=== PATIENT | female | born 1955 | race Two or more races ===

== ENCOUNTER 2017-06-27 01:09 | Emergency (ER) | payer OTHER ==
[~2017-06-27] VITALS: Ht 165.1 cm; Wt 68.0 kg
[~2017-06-27 01:09] MED LIST: PROP10TA10 PO
--- NOTE | 2017-06-27 01:15 | NUR ---
TO BED 3 A 61 YO FEMALE PT BIBA#88 FROM HOME, PER EMS, PT FAMILY THOUGHT SHE TOOK TO MANY PILLS AND WANTED HER TO BE CHECKED OUT PT DENIES ANY COMPLAINTS AT THIS TIME. PATIENT IS ALERT AND RESPONSIVE, NAD NOTED. VSS. BREATHING EVEN AND UNLABORED. NONDIAPHORETIC. GOWNED. PLACED ON CARDIAC AND VS MONITORING. SAFETY MEASURES IN PLACE.
[2017-06-27] MEDS ORDERED: IV NS 0.9% 500 ML BAG IV ONE (01:30)
--- NOTE | 2017-06-27 01:35 | NUR ---
started a saline lock on the rac g20, blood drawn and sent to lab.
[2017-06-27 01:45] LABS: EOSINOPHILS % (AUTO) 0.1 % (0.0-6.0); HEMATOCRIT 37 % (33-45); HEMOGLOBIN 12.1 g/dL (11.5-14.8); LYMPHOCYTES # (AUTO) 0.6 /CMM (0.8-4.8); LYMPHOCYTES % (AUTO) 5.8 % (20.0-44.0); MEAN CORPUSCULAR HEMOGLOBIN 27 PG (26.0-33.0); MEAN CORPUSCULAR HGB CONC 33 g/dl (31.0-36.0); MEAN CORPUSCULAR VOLUME 82 fL (82-100); MONOCYTES # (AUTO) 0.7 /CMM (0.1-1.30); MONOCYTES % (AUTO) 6.7 % (2.0-12.0); NEUTROPHILS # (AUTO) 8.9 /CMM (1.8-8.9); NEUTROPHILS % (AUTO) 87.4 % (43.0-81.0); PLATELET COUNT (AUTO) 100 /CMM (150-450); RDW COEFFICIENT OF VARIATION 15.4 (11.5-15.0); RED BLOOD CELL COUNT(AUTO) 4.47 MIL/uL (4.0-5.2); WHITE BLOOD COUNT (AUTO) 10.2 K/uL (4.3-11.0)
[2017-06-27 01:46] LABS: APPEARANCE,URINE CLEAR (CLEAR); BILIRUBIN,URINE NEGATIVE (NEGATIVE); BLOOD, URINE NEGATIVE Ery/uL (NEGATIVE); COLOR,URINE YELLOW (YELLOW); KETONES,URINE NEGATIVE (NEGATIVE); LEUKOCYTE ESTERASE ,URINE NEGATIVE (NEGATIVE); NITRITE, URINE NEGATIVE (NEGATIVE); PH,URINE 7.5 (5.0-8.0); PROTEIN,URINE NEGATIVE (NEGATIVE); UGLUCOSE NEGATIVE (NEGATIVE)
--- NOTE | 2017-06-27 01:49 | NUR ---
AND DAUGHTER AT BEDSIDE.
[2017-06-27 01:50] LABS: BACTERIA,URINE None seen /HPF (None Seen); RBC,URINE NONE SEEN /HPF (0-2); SQUAMOUS EPITHELIAL CELL,UR Few /HPF (None Seen); WBC,URINE 0-2 /HPF (0-3)
[2017-06-27 01:56] LABS: CALCIUM, SERUM 8.9 mg/dL (8.5-10.1); CARBON DIOXIDE 26 mmol/L (21-32); CHLORIDE 104 mmol/L (98-107); CREATININE 0.7 mg/dL (0.6-1.3); GLUCOSE 149 mg/dL (74-106); POTASSIUM 3.6 mmol/L (3.5-5.1); SODIUM SERUM 138 mmol/L (136-145); UREA NITROGEN, BLOOD 8 mg/dL (7-18)
[2017-06-27 02:07] LABS: ALANINE AMINOTRANSFERASE 37 U/L (12-78); ALBUMIN 3.4 g/dL (3.4-5.0); ALCOHOL, BLOOD < 3 mg/dL (0-0); ALKALINE PHOSPHATASE 128 U/L (46-116); ASPARTATE AMINOTRANSFERASE 45 U/L (15-37); BILIRUBIN,DIRECT 0.1 mg/dL (0.0-0.2); BILIRUBIN,TOTAL 0.3 mg/dL (0.2-1.0); TOTAL PROTEIN, SERUM 7.5 g/dL (6.4-8.2)
[2017-06-27 02:08] LABS: ACETAMINOPHEN 0 ug/ml (10-30)
--- NOTE | 2017-06-27 02:28 | NUR ---
patient to ct.
--- NOTE | 2017-06-27 03:22 | NUR ---
IV removed. Catheter intact and site benign. Pressure and 4x4 applied to site. No bleeding noted.
--- NOTE | 2017-06-27 03:23 | NUR ---
accompanied by family. vss.
--- NOTE | 2017-06-27 03:23 | NUR ---
Patient discharged to home in stable condition. Written and verbal after care instructions given. Patient verbalizes understanding of instruction. Patient is ambulatory with steady gait, no further complaints.
[2017-06-27 03:26] VITALS: BP 120/74
== END 2017-06-27 03:27 | disposition home or self-care (01) ==
LOC: ER 01:11
DX: R41.82 Altered mental status, unspecified (principal); T42.6X1A Poisoning by other antiepileptic and sedative-hypnotic drugs, accidental (unintentional), initial encounter; Y92.89 Other specified places as the place of occurrence of the external cause; I10 Essential (primary) hypertension
CPT/HCPCS: 36415; 70450-TC; 80048-TC; 80076-TC; 80305; 81000-TC; 85025-TC; A4606; G0480; J7040; Z7610

== ENCOUNTER 2018-10-05 01:15 | Inpatient (IN) | payer OTHER ==
[~2018-10-05] VITALS: Ht 149.9 cm; Wt 73.9 kg
[2018-10-05] VITALS (24 sets, daily range): BP systolic 55–129; BP diastolic 30–98
--- NOTE | 2018-10-05 01:50 | NUR ---
RN ADMITTING NOTE RECEIVED PT VIA [facility] FROM [facility] ACCOMPANIED BY AND DAUGHTER. A/OX4, BREATHING EVEN AND UNLABORED ON 2L O2 NC. COMPLAINS OF EXCESSIVE SNEEZING AND SUBSEQUENT HEADACHE. IV ACCESS ON THE R AC 18G AND L AC 18G PATENT AND FLUSHING. SKIN INTACT. BED IN LOWEST LOCKED POSITION, CALL LIGHT WITHIN REACH AT ALL TIMES, WILL CONTINUE TO MONITOR.
[2018-10-05] MEDS ORDERED: ACET-73 PO (02:13)
[2018-10-05] MEDS ORDERED: DULO30CA2 PO (02:21)
[2018-10-05] MEDS ORDERED: CHOL200026 PO (02:21)
[2018-10-05] MEDS ORDERED: AMLO2.5T2 PO (02:21)
[2018-10-05] MEDS ORDERED: CYCL10TA9 PO (02:21)
[2018-10-05] MEDS ORDERED: GABA600T12 PO (02:35)
[2018-10-05] MEDS ORDERED: METF-440 PO (02:35)
[2018-10-05] MEDS ORDERED: OMEP20CA10 PO (02:35)
[2018-10-05] MEDS ORDERED: RANI150C4 PO (02:35)
[2018-10-05] MEDS: IV D5 LR 1,000 ML IV PRN ×3 (03:20→21:40)
[2018-10-05] MEDS ORDERED: ACETAMINOPHEN 650 MG/SUPP.RECT RC PRN (03:30)
[2018-10-05] MEDS ORDERED: HYDROMORPHONE INJ 2 MG/ML DISP.SYRIN IV PRN (03:30)
[2018-10-05] MEDS ORDERED: DEXTROSE 50%-WATER 50 ML DISP.SYRIN IV PRN (03:30)
[2018-10-05] MEDS ORDERED: LORAZEPAM INJ 2 MG/ML VIAL IV PRN (03:30)
[2018-10-05] MEDS: BLOOD SUGAR DIAGNOSTIC 1 EACH STRIP IN SCH ×3 (05:45→17:01)
[2018-10-05] MEDS: INSULIN REGULAR, HUMAN 100 UNIT/ML 3 ML VIAL SQ PRN ×3 (05:46→17:45)
--- NOTE | 2018-10-05 06:48 | NUR ---
PROOFER PREPRESS CLOSING NOTES PT REMAINS IN BED, AWAKE, A/OX4, BREATHING EVEN AND UNLABORED ON 2L O2 NC. CONTINUES TO COMPLAINS OF EXCESSIVE SNEEZING AND SUBSEQUENT HEADACHE, ALCIDES PAGED, NO RESPONSE. TELE MONITOR IN PLACE, SR LOW 100S. IV ACCESS ON THE R AC 18G AND L AC 18G PATENT AND FLUSHING. SKIN INTACT. MRSA SWAB DONE. BED IN LOWEST LOCKED POSITION, CALL LIGHT WITHIN REACH AT ALL TIMES, WILL ENDORSE TO DAY NURSE FOR PRIMITIVO
[2018-10-05 08:23] LABS: BASOPHILS % (AUTO) 0.3 % (0.0-2.0); EOSINOPHILS % (AUTO) 2.1 % (0.0-6.0); HEMATOCRIT 26 % (33-45); HEMOGLOBIN 8.6 g/dL (11.5-14.8); LYMPHOCYTES # (AUTO) 1.1 /CMM (0.8-4.8); LYMPHOCYTES % (AUTO) 10.3 % (20.0-44.0); MEAN CORPUSCULAR HGB CONC 33 g/dl (31.0-36.0); MEAN CORPUSCULAR VOLUME 82 fL (82-100); MONOCYTES # (AUTO) 1.1 /CMM (0.1-1.30); MONOCYTES % (AUTO) 10.4 % (2.0-12.0); NEUTROPHILS % (AUTO) 76.9 % (43.0-81.0); PLATELET COUNT (AUTO) 106 /CMM (150-450); RED BLOOD CELL COUNT(AUTO) 3.14 MIL/uL (4.0-5.2); WHITE BLOOD COUNT (AUTO) 10.4 K/uL (4.3-11.0)
[2018-10-05] MEDS: ONDANSETRON HCL/PF 4 MG/2 ML VIAL IVP PRN ×3 (08:37→21:14)
--- NOTE | 2018-10-05 08:40 | NUR ---
Tele/RN - Assessment Patient is alert and oriented x 4, Croatian speaking only, admitted for UGIB. Patient c/o severe headache, Dilaudid 1 mg IVP given with relief, tolerating room air, ST on tele monitor, no apparent distress seen. Patient noted with coffee-ground emesis x 2, Zofran 4 mg IVP administered for n/v, needs to collect stool for OB, pending GI consult. Labs reviewed hemoglobin and hematocrit dropped to 8.6/26, also noted with low magnesium level 1.6, will notify Md. Patient currently NPO, IVF D5 LR at 100 ml/hr infusing well on the RAC with no signs of infiltration. All needs attended. Patient and family updated on plan of care. Will continue with current medical management.
[2018-10-05 08:43] LABS: ALBUMIN 2.7 g/dL (3.4-5.0); BILIRUBIN,TOTAL 0.6 mg/dL (0.2-1.0); CREATININE 0.7 mg/dL (0.6-1.3); MAGNESIUM 1.6 mg/dL (1.8-2.4); PHOSPHORUS 2.6 mg/dL (2.5-4.9); POTASSIUM 4.1 mmol/L (3.5-5.1); TOTAL PROTEIN, SERUM 6.1 g/dL (6.4-8.2)
[2018-10-05 08:53] LABS: THYROID STIMULATING HORMONE 0.551 uIU/mL (0.358-3.74)
[2018-10-05] MEDS ORDERED: PANTOPRAZOLE 40 MG VIAL IV SCH ×2 (12:00→21:00)
[2018-10-05] MEDS: Magnesium 1GM/D5W 100ML PREMIX 100 ML IV SCH ×2 (12:37→14:02)
[2018-10-05] MEDS ORDERED: ACETAMINOPHEN 325 MG TABLET PO PRN (17:00)
--- NOTE | 2018-10-05 18:29 | NUR ---
MS/RN - Closing notes Patient is alert and oriented throughout the shift, stable on room air, no apparent distress seen. Seen and evaluated by Dr. Garcia (GI), started on clear liquids but unable to tolerate, had a large amount of dark red emesis. Patient started on Protonix 80 mg IVP Q12, scheduled for EGD tomorrow, consent signed. Replete Magnesium total of 2gm IV given. Patient and family at bedside updated on plan of care. Will continue with current medical management.
--- NOTE | 2018-10-05 19:10 | NUR ---
RN MS RECEIVING NOTES UPON ARRIVAL RAPID RESPONSE WAS CALLED AT 1905, RECEIVED PT DURING RAPID AND ASSISTED, PER REPORT PATIENT HAD SEIZURE LIKE ACTIVITY AND VOMITTED BLOOD. CURRENT VITAL SIGNS 100/66,147,25,98% 3 LITERS,BS 215,PATIENT PLACED ON CARDIAC TELE MONITOR REMAINS ST 147. PATIENT IS AWAKE, AND ALERT ABLE TO FOLLOW COMMANDS AT AND MAKE SIMPLE NEEDS KNOWN AT THIS TIME. BENEFITS COUNSELOR TEAM AT BEDSIDE.
--- NOTE | 2018-10-05 19:25 | NUR ---
RN NOTES DR COOPER CALLED PER AM NURSE MADE AWARE OF PATIENT CONDITION WITH NEW ORDERS TO CALL HOSPITALIST TO OBTAINS ORDER FOR ICU TRANSFER.
--- NOTE | 2018-10-05 19:30 | NUR ---
RN NOTES CALLED [facility] TO CONTACT HOSPITALIST TO NOTIFY OF PATIENT CONDITION AND DR. COOPER RECOMMENDATION.
--- NOTE | 2018-10-05 19:35 | NUR ---
RN NOTES RECEIVED CALL BACK FROM HOSPITALIST PER RAFIA LÓPEZ WILL CALL TO FOLLOW UP WITH FURTHER ORDERS.
--- NOTE | 2018-10-05 19:45 | NUR ---
MS/RN - RESEARCH PHYSICIAN 19:05 - Called to room by family member due to patient vomited large amount of so blood and seizure episode. Vital signs as follows T=98.0 oral, WX=966, RR= 25, Sp02= 98% on oxygen at 3lpm via NC, BP= 100/66, BG= 215 mg/dL. RESEARCH PHYSICIAN called for sudden change in condition. Please see RESEARCH PHYSICIAN record for further documentation and orders.
--- NOTE | 2018-10-05 19:45 | NUR ---
RN MS NOTES RECEIVED CALL FROM ASIF LÓPEZ, MADE AWARE OF PATIENT SITUATION AND CURRENT VS AND NOTED BP TRENDING DOWN TO 88/58 FROM 100/66,147,25,98.0,100% 3L VIA NC, NO CHANGE IN LOC AT THIS TIME FROM RAPID RESPONSE TIME.MADE AWARE OF DAUGHTER STATEMENT PT" UPPER ARMS TENSED UP AND EYES ROLLED BACK" PRIOR TO RAPID BEING CALLED NEW ORDERS NOTED, READ BACK AND CARRIED OUT FOR 1L NS BOLUS STAT CT HEAD WITH CONTRAST STAT H&H STAT EEG STAT. AND MADE AWARE PATIENT FAMILY REALLY WANTS HIGHER LEVEL OF CARE, PER MARIBEL TRANSFER PATIENT TO ICU. WILL CONTINUE TO MONITOR PATIENT
[2018-10-05] MEDS ORDERED: IV NS 0.9% 1,000 ML IV ONE (19:55)
[2018-10-05] MEDS ORDERED: IV NS 0.9% 1,000 ML IV PRN (20:00)
--- NOTE | 2018-10-05 20:10 | NUR ---
RN MS NOTES SECOND RAPID RESPONSE CALLED, PATIENT BLOOD PRESSURE NOTED DECREASING TO 71/42,147,100% 3L,98.0,25.BLOOD SUGAR ACCUCHECK 215 AT THIS TIME, NOTED PATIENT JUST SMALL AMOUNT OF BLOOD TINGED SPUTUM IN EMESIS BAG. WHEN ASSESSED NO CHANGE IN LOC AT THIS TIME, RAPID RESPONSE TEAM AT BEDSIDE, 1L NS IS CURRENTLY RUNNING VIA IV SITE TO RIGHT AC #18G INTACT AND PATENT,
--- NOTE | 2018-10-05 20:20 | NUR ---
RN MS NOTES PATIENT IS BEING TRANSPORTED TO ICU VIA ACLS PROTOCOL. DAUGHTER AND FAMILY MADE AWARE OF HOSPITALIST NEW ORDERS FOR CT HEAD WITH CONTRAST ORDERED FOR THE SEIZURE LIKE ACTIVITY TO ASSESS FOR ANY FURTHER CHANGES. MADE DAUGHTER AWARE FOR PATIENT TO GET PROCEDURE DONE, NEED TO HAVE CONSENT. CONSENT SIGNED BY DAUGHTER. FAMILY EXPRESSED THAT THEY WOULD LIKE TO SPEAK TO A DOCTOR FOR UPDATE ON PLAN OF CARE CALLED AND SPOKE TO RAFIA, WHOM WILL SPEAK TO THEM WHEN NEW RESULTS RECEIVED. FAMILY MADE AWARE, VERBALIZE THEY UNDERSTAND.
[2018-10-05] MEDS ORDERED: IOHEXOL-300 100 ML VIAL IV ONE (20:30)
--- NOTE | 2018-10-05 20:30 | NUR ---
RN MS NOTES REPORT GIVEN TO LU, STRIP MACHINE OPERATOR , REGARDING PATIENT AND CURRENT CONDITION.
[2018-10-05] MEDS ORDERED: CT SWABBABLE VALVE TRANS SET 1 EA INFUS.SET MC ONE (20:32)
[2018-10-05] MEDS ORDERED: IV NS 0.9% 250 ML IV ONE (20:32)
[2018-10-05] MEDS: OCTREOTIDE 1,250 MCG in IV NS 0.9% 247.5 ML IV PRN (21:05)
--- NOTE | 2018-10-05 21:15 | NUR ---
DOVETAILER PT VOMITED 200 ML BLOOD CLOTS; Alexandr DOWD MADE AWARE; OK TO INSERT NG TUBE LIS.
[2018-10-05 21:18] LABS: MEAN CORPUSCULAR HGB CONC 32 g/dl (31.0-36.0); MEAN CORPUSCULAR VOLUME 84 fL (82-100); PLATELET COUNT (AUTO) 116 /CMM (150-450)
[2018-10-05] MEDS ORDERED: LIDOCAINE 2% JEL UROJET 10 ML MM ONE (21:30)
[2018-10-05 21:32] LABS: RED BLOOD CELL COUNT(AUTO) 1.87 MIL/uL (4.0-5.2)
[2018-10-05 21:34] LABS: HEMOGLOBIN 5.1 g/dL (11.5-14.8)
[2018-10-05 21:35] LABS: HEMATOCRIT 16 % (33-45)
--- NOTE | 2018-10-05 21:45 | NUR ---
IOS SOFTWARE ENGINEER Alexandr DOWD DEVELOPMENT SCIENTIST AT BEDSIDE; UPDATED FAMILY ON PLAN OF CARE. FAMILY AGREED TO PICC LINE.
--- NOTE | 2018-10-05 21:50 | NUR ---
C4 PLANNER NG TUBE INSERTED SET TO LIS. VERIFIED BY AUSCULTATION BY 2 RNS.
--- NOTE | 2018-10-05 22:00 | NUR ---
HYDRO SPRAYER OPERATOR LABOR AND DELIVERY REGISTERED NURSE AT BEDSIDE.
--- NOTE | 2018-10-05 22:13 | NUR ---
GRAVITY METER OPERATOR PICC LINE RN ETA 30 MINS.
[2018-10-05] MEDS ORDERED: PANTOPRAZOLE 40 MG VIAL ONE (22:14)
[2018-10-05] MEDS: PANTOPRAZOLE 80 MG in IV NS 0.9% 500 ML IV SCH (22:17)
[2018-10-05] MEDS ORDERED: PHENYLEPHRINE 10 MG/ML VIAL ONE (23:45)
[2018-10-05] MEDS: PHENYLEPHRINE 80 MG in IV D5W 250 ML IV PRN (23:49)
[2018-10-06] VITALS (145 sets, daily range): BP systolic 44–176; BP diastolic 17–114
[2018-10-06 00:32] LABS: ABG BASE EXCESS -10.5 mmol/L; ABG OXYGEN SATURATION 96.1 % (92.0-98.5); ABG PCO2 25.2 mmHg (35.0-45.0); ABG PH 7.361 (7.350-7.450); ABG PO2 97.2 mmHg (75.0-100.0); AaDO2 72.7 mmHg; COHb 1.3 % (0.5-1.5); MetHb 1.1 % (0.0-1.5); O2Hb 93.8 % (94.0-97.0); SITE, ABG Left Radial; VENT MODE, BG Nasal Cannula
--- NOTE | 2018-10-06 00:33 | NUR ---
STAT ABG DONE. PT ON 2L NC. NOTIFIED RN WITH THE RESULT.
[2018-10-06] MEDS: BLOOD SUGAR DIAGNOSTIC 1 EACH STRIP IN SCH ×4 (00:52→18:37)
[2018-10-06] MEDS: INSULIN REGULAR, HUMAN 100 UNIT/ML 3 ML VIAL SQ PRN (00:55)
--- NOTE | 2018-10-06 02:00 | NUR ---
CAR UNLOADER HELPER PT CONTINUES TO ATTEMPT TO GET OUT OF BED; ATTEMPTING TO PULL IV LINES. PT CONFUSED WITH AGGRESSIVE BEHAVIOR. BL SOFT WRIST RESTRAINTS PLACED FOR PT SAFETY. FAMILY AT BEDSIDE.
[2018-10-06] MEDS ORDERED: LORAZEPAM INJ 2 MG/ML VIAL IV PRN (02:30)
--- NOTE | 2018-10-06 03:15 | NUR ---
JOB SETTER HONING PT REMAINS AGITATED WITH INCREASED HR 150-170 NNUNEZ ASSOCIATE ARTISTIC DIRECTOR AWARE WITH ORDERS TO GIVE ATIVAN NEEDED.
--- NOTE | 2018-10-06 04:07 | NUR ---
DIRECTOR OF ORTHOPEDICS BLOOD TRANSFUSION COMPLETE; NO IMMEDIATE SIGNS OF REACTION NOTED AT THIS TIME. CONTINUE TO MONITOR.
[2018-10-06 05:00] LABS: BASOPHILS % (AUTO) 0.1 % (0.0-2.0); EOSINOPHILS % (AUTO) 0.1 % (0.0-6.0); HEMATOCRIT 31 % (33-45); HEMOGLOBIN 10.2 g/dL (11.5-14.8); LYMPHOCYTES # (AUTO) 2.1 /CMM (0.8-4.8); LYMPHOCYTES % (AUTO) 10.6 % (20.0-44.0); MEAN CORPUSCULAR HGB CONC 33 g/dl (31.0-36.0); MEAN CORPUSCULAR VOLUME 86 fL (82-100); MONOCYTES # (AUTO) 2.2 /CMM (0.1-1.30); MONOCYTES % (AUTO) 11.2 % (2.0-12.0); NEUTROPHILS # (AUTO) 15.6 /CMM (1.8-8.9); PLATELET COUNT (AUTO) 102 /CMM (150-450); RED BLOOD CELL COUNT(AUTO) 3.54 MIL/uL (4.0-5.2)
[2018-10-06 05:17] LABS: ALBUMIN 2.3 g/dL (3.4-5.0); BILIRUBIN,DIRECT 0.3 mg/dL (0.0-0.2); BILIRUBIN,TOTAL 0.8 mg/dL (0.2-1.0); CALCIUM, SERUM 7.6 mg/dL (8.5-10.1); CREATININE 1.2 mg/dL (0.6-1.3); MAGNESIUM 2.2 mg/dL (1.8-2.4); POTASSIUM 4.7 mmol/L (3.5-5.1); TOTAL PROTEIN, SERUM 4.8 g/dL (6.4-8.2)
[2018-10-06] MEDS ORDERED: PIPERACILLIN /TAZOBACTAM 3.375 G in IV D5W 50 ML IV SCH (06:00)
--- NOTE | 2018-10-06 06:00 | NUR ---
VENDOR RELATIONSHIP MANAGER AMMONIA 270 TO BE FOLLOWED UP POST EGD. CONTINUE TO MONITOR.
[2018-10-06] MEDS ORDERED: PIPERACILLIN /TAZOBACTAM 3.375 G VIAL IV ONE (06:11)
[2018-10-06] MEDS: PIPERACILLIN /TAZOBACTAM 3.375 G in IV D5W 100 ML IV SCH ×3 (06:15→22:57)
--- NOTE | 2018-10-06 06:53 | NUR ---
DIEING OUT MACHINE OPERATOR PTS SON REMAINED AT BEDSIDE PT CONTINUES TO BE CONFUSED; PT IS KICKING LEGS AND SITING UP TRYING TO GET OUT OF BED. BL SOFT WRIST RESTRAINTS REMAIN IN PLACE WELL.
--- NOTE | 2018-10-06 07:06 | NUR ---
RT UNABLE TO PERFORM EKG PATIENT COMBATIVE AND WOULD NOT ALLOW FOR LEADS TO BE PLACED ON BODY. RN LU TATE.
--- NOTE | 2018-10-06 07:21 | NUR ---
CHILDRENS CLUB ATTENDANT PT UNCOOPERATIVE FOR ECG AT THIS TIME.
--- NOTE | 2018-10-06 07:45 | NUR ---
RECEIVED PATIENT. ALERT BUT CONFUSED, UNABLE TO FOLLOW COMMANDS.NON VERBAL. CHANGE IN CONDITION HAPPENED AROUND MIDNIGHT AND AMMONIA LEVEL DRAWN- 270. PATIENT WITH NGT TO LIS WITH RED BLOODY DRAINAGE NOTED. NASAL CANNULA O2 SAT STABLE. IV SITES C/D/I/P WITH MEDICATIONS PER MD ORDER. ARROYO CATH TO GRAVITY. RESTRAINTS IN PLACE AND FAMILY AT BEDSIDE. SAFETY, SKIN, ASPIRATION PRECAUTIONS IN PLACE AND WILL MONITOR.
--- NOTE | 2018-10-06 08:19 | NUR ---
MANAGER WORKERS COMPENSATION LÓPEZ AT BESIDE. MANAGER WORKERS COMPENSATION AWARE OF PATIENT CURRENT CONDITION, LABS, VS. PER MANAGER WORKERS COMPENSATION WILL ORDER H&H Q4H. WILL CONSULT WITH NEURO, CARDIOLOGY. OBTAIN HIDA IF ABLE. ANESTHESIOLOGIST AWARE OF PATIENT CURRENT CONDITION AND IN CONTACT WITH DR RUSHING PENDING EGD.
[2018-10-06] MEDS ORDERED: LACTULOSE 10 G/15 ML UDC (PYXIS) PR SCH ×3 (08:30→18:30)
--- NOTE | 2018-10-06 08:52 | NUR ---
RT PT INTUBATED WITH ER , 7.5 ETT @ 21 CM MARKED AT THE LIP. POSITIVE COLOR CHANGE OF CO2 DETECTOR. BILATERAL B/S. PLACED ON VENT. VENT ALARMS CHECKED AND AUDIBLE. VENT PLUGGED IN RED OUTLET. AMBU BAG NOTED HOB. PT TOLERATING SETTINGS WELL, NO SOB OR RESP DISTRESS NOTED AT THIS TIME, WILL CONTINUE TO MONITOR T/O SHIFT.
--- NOTE | 2018-10-06 08:52 | NUR ---
PATIENT INTUBATED PER DR MORENO ORDER. PER MD START ZAHRA FOR SEDATION.
[2018-10-06] MEDS ORDERED: PROPOFOL 100 ML IV PRN (09:00)
[2018-10-06] MEDS ORDERED: SUCCINYLCHOLINE CHLORIDE 20 MG/ML VIAL ONE (09:11)
[2018-10-06] MEDS: PANTOPRAZOLE 80 MG in IV NS 0.9% 500 ML IV SCH ×2 (09:28→18:19)
[2018-10-06 09:30] LABS: HEMOGLOBIN 9.9 g/dL (11.5-14.8)
[2018-10-06] MEDS ORDERED: IV 1/2NS 1000 ML 1,000 ML IV PRN (09:30)
--- NOTE | 2018-10-06 09:44 | NUR ---
DONATO met with pt's daughter Blanca who informed SW that her employer is requesting a verification of admission letter since her mother is admitted in ICU. DONATO wrote letter and gave it to Blanca. Blanca started crying. DONATO gave her a hug and offered her emotional support and informed her she can stop by anytime she wants to the SW's office if she needs to talk.
--- NOTE | 2018-10-06 09:48 | NUR ---
PATIENT S/P EGD WITH 7 BANDS PLACED.
[2018-10-06] MEDS ORDERED: LACTULOSE 10 G/15 ML UDC (PYXIS) PO SCH (10:00)
--- NOTE | 2018-10-06 11:03 | NUR ---
NOTIFIED DR RUSHING PATIENT HR STILL ELEVATED 160'S-170'S WHILE SEDATED ON DIPRIVAN. MD WILL F/U WITH ORDERS. CALLED DR COOPER AND PER MD NO OG OR NG TUBE.
[2018-10-06] MEDS: LACTULOSE 10 G/15 ML UDC (PYXIS) PR SCH ×2 (11:31→17:42)
[2018-10-06] MEDS ORDERED: ETOMIDATE 2 MG/ML VIAL IV ONE (12:16)
[2018-10-06] MEDS ORDERED: SUCCINYLCHOLINE CHLORIDE 20 MG/ML VIAL IV ONE (12:16)
--- NOTE | 2018-10-06 12:45 | NUR ---
NOTIFIED DR MORENO PATIENT RR ELEVATED 35-LOW 40'S AND NO IMPROVEMENT IN RR WHEN DIPRIVAN IS INCREASED; ONLY LOWERS BP.
[2018-10-06 12:53] LABS: ABG BASE EXCESS -13.2 mmol/L; ABG OXYGEN SATURATION 89.4 % (92.0-98.5); ABG PCO2 24.8 mmHg (35.0-45.0); ABG PH 7.294 (7.350-7.450); ABG PO2 65.8 mmHg (75.0-100.0); AaDO2 262.8 mmHg; COHb 0.2 % (0.5-1.5); MetHb 0.4 % (0.0-1.5); O2Hb 88.9 % (94.0-97.0); SITE, ABG Right Radial; VENT MODE, BG AC14 450 50%b +5
--- NOTE | 2018-10-06 13:00 | NUR ---
DR MORENO AWARE OF PATIENT ABG. PER MD VENT SETTINGS CHANGED ACCORDINGLY.
--- NOTE | 2018-10-06 13:16 | NUR ---
RT PER DR MORENO VENT SETTINGS CHANGED TO AC 22, VT 500, 60% +5. RN HEBER AWARE Addendum: 10/06/18 at 1316 by ABDELRAHMAN VAZQUEZ RT Amended: Links added.
--- NOTE | 2018-10-06 13:18 | NUR ---
DR MORENO AT BEDSIDE. PER MD PERALTA PEEP. OBTAIN ABG AT 1430. AND OK FOR ATIVAN 1MG Q2H IVP PRN AND MORPHINE 4MG Q1H PRN IVP Addendum: 10/06/18 at 2010 by HEBER HOLLINGSWORTH RN ARJUN FOR DILAUDID 1MG Q1H PRN FOR AGITATION/ ELEVATED RR
[2018-10-06] MEDS ORDERED: IV NS 0.9% 1,000 ML IV STA ×3 (13:46→16:48)
--- NOTE | 2018-10-06 13:56 | NUR ---
PER DR MORENO PLEASE CHECK PATIENT CVP. NOTIFIED MD CVP READING OF 1. PER GIVE NS 1L BOLUS AND INCREASE MAINTENANCE IVF TO 150ML/HOUR. IF AFTER THIS BOLUS BP LOW OK TO START KRISTINE. DR RUSHING STATES KRISTINE OKAY TO START FOR SBP UNDER 90 Addendum: 10/06/18 at 1412 by HEBER HOLLINGSWORTH RN PER DR MORENO OK TO DECREASE PEEP TO 0
[2018-10-06] MEDS ORDERED: HYDROMORPHONE INJ 2 MG/ML DISP.SYRIN IV PRN (14:00)
--- NOTE | 2018-10-06 14:00 | NUR ---
UNABLE TO TURN PATIENT IS TOO UNSTABLE
[2018-10-06 14:45] LABS: ABG BASE EXCESS -15.2 mmol/L; ABG OXYGEN SATURATION 93.4 % (92.0-98.5); ABG PCO2 25.6 mmHg (35.0-45.0); ABG PH 7.239 (7.350-7.450); ABG PO2 85.3 mmHg (75.0-100.0); AaDO2 314.3 mmHg; COHb 0.3 % (0.5-1.5); MetHb 1.1 % (0.0-1.5); O2Hb 92.1 % (94.0-97.0); SITE, ABG Right Radial
[2018-10-06 15:09] LABS: HEMOGLOBIN 9.2 g/dL (11.5-14.8)
[2018-10-06] MEDS: PHENYLEPHRINE 80 MG in IV D5W 250 ML IV PRN ×2 (15:34→23:56)
--- NOTE | 2018-10-06 15:51 | NUR ---
PATIENT BP CONTINUES LOW. STARTED ON KRISTINE. PER LÓPEZ GIVE ANOTHER 1L NS BOLUS.
[2018-10-06] MEDS ORDERED: IV NS 0.9% 1,000 ML IV PRN (16:00)
--- NOTE | 2018-10-06 16:00 | NUR ---
UNABLE TO TURN PATIENT IS TOO UNSTABLE
[2018-10-06 16:18] LABS: ABG BASE EXCESS -16.6 mmol/L; ABG OXYGEN SATURATION 91.9 % (92.0-98.5); ABG PCO2 22.6 mmHg (35.0-45.0); ABG PH 7.232 (7.350-7.450); ABG PO2 79.2 mmHg (75.0-100.0); AaDO2 323.7 mmHg; COHb 0.3 % (0.5-1.5); O2Hb 90.7 % (94.0-97.0); PEEP,BG 0 cm H2O; SITE, ABG Right Radial; VT, ABG 550 mL
--- NOTE | 2018-10-06 16:45 | NUR ---
SPOKE WITH AVIATION MAINTENANCE INSTRUCTOR MARIBEL AND NOTIFIED WE ARE MAXING OUT ON OUR KRISTINE. PER AVIATION MAINTENANCE INSTRUCTOR OK TO ORDER LEVOPHED PER PROTOCOL. NOTIFIED AVIATION MAINTENANCE INSTRUCTOR I HAVE TURNED OFF PATIENT DIPRIVAN SHE IS UNAROUSABLE AND NO PUPIL RESPONSE NOR GAG RELEX NOTED. PER AVIATION MAINTENANCE INSTRUCTOR ORDER STAT HEAD CT WO. AT THIS TIME PATIENT TOO UNSTABLE FOR CT TRANSPORT.
--- NOTE | 2018-10-06 16:49 | NUR ---
patient breathing more labored and agonal appearing. abg taken and notified dr moreno per md give now 3 amps of bicarb. spoke with doug and notified of the above and that we are maxed out on umberto. per video technician order levophed (aware of hr) and give another ns liter bolus. cvp currently 4. pending a line insertion with video technician sarah. Addendum: 10/06/18 at 1710 by HEBER HOLLINGSWORTH RN PER DR MORENO ORDER 3 AMPS BICARB IN D5W AT 150ML/HOUR. ALSO ADD HYDROCORTISONE IVP 100MG Q8H
[2018-10-06] MEDS: SODIUM BICARBONATE SYR 50 MEQ/50 ML DISP.SYRIN IV ONE ×2 (16:52→16:55)
--- NOTE | 2018-10-06 17:20 | NUR ---
DR RUSHING AWARE OF PATIENT UPDATED TROPONIN. NO NEW ORDERS PER MD.
[2018-10-06] MEDS: Sodium Bicarbonate 150 MEQ in IV D5W 1,000 ML IV PRN (17:25)
[2018-10-06] MEDS: NOREPINEPHRINE 16 MG in IV D5W 500 ML IV PRN (17:42)
[2018-10-06] MEDS: RIFAXIMIN 550 MG TABLET PO SCH (18:00)
--- NOTE | 2018-10-06 18:00 | NUR ---
YOSI AT BEDSIDE AND ASSISTING MYSELF AND RT WITH PATIENT TO HEAD CT.
[2018-10-06] MEDS: HYDROCORTISONE SOD SUCCINATE 100 MG/2 ML VIAL IV SCH (18:19)
--- NOTE | 2018-10-06 18:20 | NUR ---
PATIENT RETURNED FROM CT NO ADVERSE CHANGE. BP STABLE.
[2018-10-06] MEDS: LORAZEPAM INJ 2 MG/ML VIAL IV PRN ×4 (18:38→19:48)
--- NOTE | 2018-10-06 18:45 | NUR ---
HENRIETTA DELUCA NEED TO TRANSFER TO HIGHER LEVEL OF CARE. CALLING AND SPEAKING WITH MAGDALENE. COURT STENOGRAPHER LÓPEZ AWARE AND UPDATED ON PATIENT CONDITION, LABS, VS AND SPOKE WITH YOSI NÚÑEZ NP.
[2018-10-06] MEDS ORDERED: LACTULOSE 10 G/15 ML UDC (PYXIS) PO ONE (19:00)
--- NOTE | 2018-10-06 19:05 | NUR ---
PATIENT WITNESSED SEIZURE YOSI AT BEDSIDE GIVING ATIVAN PER ORDER. PATIENT NOTED WITH FACIAL TWITCHING AND RIGHT ARM MOVEMENT. SEIZURE SUBSIDED LASTING APPROX 1 [address]UTE. SAFETY PRECAUTIONS IN PLACE
--- NOTE | 2018-10-06 19:15 | NUR ---
PATIENT WITH ANOTHER WITNESSED SEIZURE WITH FACIAL AND LEFT ARM TWITCHING. HENRIETTA DELUCA NP AT BEDSIDE PLEASE GIVE ANOTHER 1MG ATIVAN IVP. SEIZURE SUBSIDED AFTER [address]AFETY PRECAUTIONS IN PLACE AND MONITORING. Addendum: 10/07/18 at 0842 by HEBER HOLLINGSWORTH RN 2mg ativan per eloisa
[2018-10-06] MEDS ORDERED: phenytoin SODIUM IV 1,000 MG in IV NS 0.9% 100 ML IV ONE (19:30)
[2018-10-06] MEDS ORDERED: LORAZEPAM INJ 2 MG/ML VIAL IV ONE ×2 (19:30)
[2018-10-06] MEDS ORDERED: PHENYTOIN SODIUM IV 50 MG/ML VIAL IV ONE (19:30)
--- NOTE | 2018-10-06 19:30 | NUR ---
RN INITIAL NOTES RECEIVED THE PATIENT ON BED, INTUBATED, UNRESPONSIVE TO ANY STIMULI. CURRENTLY ON VENT WITH SETTINGS AC 28, TV 500, FIO2 50%, PEEP 0, ETT 7.5/21@LIP, WITH LABORED AND SHALLOW BREATHING, BUT SATURATING WELL. CURRENTLY SINUS TACH ON THE MONITOR, HR 140'S. ON KRISTINE DRIP @ 300MCG/MIN AND LEVO DRIP @ 4MCG. PT HAS A FLEXISEAL WITH YELLOW LIQUID OUTPUT. ARROYO CATH NOTED. LEFT AC 18G AND RIGHT UPPER 3LUMEN PICC WITH SANDOSTATIN DRIP, PROTONIX DRIP, AND NABICARB 150MEQ IN D5W @ 150MLS/HR. BED LOW AND LOCKED, SIDERAILS UP, BED ALARM ON FOR SAFETY. WILL MONITOR
--- NOTE | 2018-10-06 19:30 | NUR ---
CARE ENDORSED TO [facility] FOR PRIMITIVO. IV SITES C/D/I/P WITH MEDICATIONS RUNNING PER ORDER; SEE SPREADSHEET. PATIENT TOLERATING VENT SETTINGS. MONITORING BP CLOSELY AND GTTS PER ORDER; SEE SPREADSHEET. YOSI AT BEDSIDE PENDING UPDATED ORDERS. ARROYO CATH IN PLACE DRAINING TO GRAVITY FLUSHED AND PATENT. TELE SINUS TACH 140'S -150'S. FAMILY AT BEDSIDE UPDATED ON PLAN.
[2018-10-06] MEDS ORDERED: LACTULOSE 10 G/15 ML UDC (PYXIS) PR ONE (20:00)
--- NOTE | 2018-10-06 20:00 | NUR ---
RN NOTES UNABLE TO REPOSITION PATIENT BECAUSE PT IS TOO UNSTABLE OF THE MOMENT.
[2018-10-06] MEDS ORDERED: PHENYTOIN SODIUM IV 50 MG/ML VIAL IV SCH (21:00)
[2018-10-06 21:16] LABS: HEMOGLOBIN 7.1 g/dL (11.5-14.8)
[2018-10-06] MEDS ORDERED: SODIUM BICARBONATE SYR 50 MEQ/50 ML DISP.SYRIN ONE (21:23)
[2018-10-06] MEDS ORDERED: EPINEPHRINE (1:1000) 1 MG/ML AMPUL ONE (21:24)
[2018-10-06 21:27] LABS: ABG BASE EXCESS -17.1 mmol/L; ABG OXYGEN SATURATION 92.6 % (92.0-98.5); ABG PCO2 45.1 mmHg (35.0-45.0); ABG PH 7.041 (7.350-7.450); ABG PO2 102.3 mmHg (75.0-100.0); AaDO2 565.6 mmHg; COHb 1.1 % (0.5-1.5); MetHb 1.5 % (0.0-1.5); O2Hb 90.2 % (94.0-97.0); SITE, ABG Left Femoral; VENT MODE, BG 100% AMBU BAG
[2018-10-06] MEDS ORDERED: ALBUMIN 25% 200 ML IV ONE ×2 (21:29→21:44)
[2018-10-06] MEDS ORDERED: SODIUM BICARBONATE SYR 50 MEQ/50 ML DISP.SYRIN IV ONE ×2 (21:30→23:00)
--- NOTE | 2018-10-06 21:30 | NUR ---
RN NOTES 2109 PT HR FOUND TO BE RAPIDLY DECREASING FROM 150'S TO 30'S. PT ALREADY INTUBATED. NO PULSES IDENTIFIED. ANTONY SOLO CALLED AND CPR IMMEDIATELY INITIATED. DR PINA ON THE FLOOR TO LEAD THE CODE 2129 ROSC ACHIEVED WITH PALPABLE PULSES. DR PINA IN THE ROOM TO PUT IN HD CATH, ARTERIAL LINE, AND ANOTHER CENTRAL LINE
--- NOTE | 2018-10-06 21:30 | NUR ---
VENT CHANGES WERE MADE BY RED HARDY BLUE / POST ABG RESULTS Addendum: 10/06/18 at 2131 by SANDRA MOREJON RT Amended: Links added.
[2018-10-06] MEDS: EPINEPHRINE (1:1000) 1 MG in IV D5W 250 ML IV PRN (21:39)
[2018-10-06] MEDS: ALBUMIN 25% 25 GM in PREMIX 1 EA IV SCH (21:40)
[2018-10-06 22:09] LABS: BASOPHILS # (AUTO) 0.1 /CMM (0.0-0.2); BASOPHILS % (AUTO) 0.2 % (0.0-2.0); LYMPHOCYTES # (AUTO) 4.1 /CMM (0.8-4.8); LYMPHOCYTES % (AUTO) 19.6 % (20.0-44.0); MEAN CORPUSCULAR HGB CONC 31 g/dl (31.0-36.0); MEAN CORPUSCULAR VOLUME 91 fL (82-100); MONOCYTES % (AUTO) 14.4 % (2.0-12.0); NEUTROPHILS # (AUTO) 13.5 /CMM (1.8-8.9); NEUTROPHILS % (AUTO) 64.8 % (43.0-81.0); PLATELET COUNT (AUTO) 112 /CMM (150-450); RED BLOOD CELL COUNT(AUTO) 2.02 MIL/uL (4.0-5.2); WHITE BLOOD COUNT (AUTO) 20.9 K/uL (4.3-11.0)
[2018-10-06 22:20] LABS: ABG BASE EXCESS -22.1 mmol/L; ABG OXYGEN SATURATION 98.7 % (92.0-98.5); ABG PCO2 22.7 mmHg (35.0-45.0); ABG PH 7.053 (7.350-7.450); AaDO2 389.3 mmHg; MetHb 1.8 % (0.0-1.5); O2Hb 95.9 % (94.0-97.0); SITE, ABG A-Line
[2018-10-06 22:27] LABS: HEMATOCRIT 18 % (33-45); HEMOGLOBIN 5.8 g/dL (11.5-14.8)
[2018-10-06 22:31] LABS: ALBUMIN 2.8 g/dL (3.4-5.0); CALCIUM, SERUM 6.5 mg/dL (8.5-10.1); CREATININE 2.8 mg/dL (0.6-1.3); POTASSIUM 4.6 mmol/L (3.5-5.1); TOTAL PROTEIN, SERUM 4.2 g/dL (6.4-8.2)
[2018-10-06] MEDS: PHENYTOIN SODIUM IV 50 MG/ML VIAL IV SCH (22:57)
[2018-10-06] MEDS: SODIUM CHLORIDE IRRIG IR SCH (22:58)
[2018-10-06] MEDS: LACTULOSE IR SCH (22:58)
[2018-10-06] MEDS ORDERED: LACTULOSE 10 G/15 ML UDC (PYXIS) NG SCH (23:30)
--- NOTE | 2018-10-06 23:50 | NUR ---
RN NOTES PT CURRENTLY ON DIALYSIS. TOTAL OF 4 UNITS PRBC AND 2 FFP GIVEN WHILE ON DIALYSIS PER DR PINA'S ORDERS.
[2018-10-07] VITALS (112 sets, daily range): BP systolic 66–139; BP diastolic 18–65
[2018-10-07] MEDS ORDERED: LACTULOSE 10 G/15 ML UDC (PYXIS) PR SCH
[2018-10-07] MEDS: BLOOD SUGAR DIAGNOSTIC 1 EACH STRIP IN SCH ×5 (00:33→23:59)
[2018-10-07] MEDS: Sodium Bicarbonate 150 MEQ in IV D5W 1,000 ML IV PRN ×3 (00:34→15:35)
--- NOTE | 2018-10-07 01:04 | NUR ---
RN NOTES DR PINA IN PATIENT ROOM TO ASSESS THE PATIENT. STAT ABG'S ORDERED. STAT CBC, CMP , MAG, PHOS, AND AMMONIA TO BE DRAWN AFTER DIALYSIS
[2018-10-07 01:06] LABS: ABG BASE EXCESS -8.2 mmol/L; ABG OXYGEN SATURATION 98.1 % (92.0-98.5); ABG PCO2 24.8 mmHg (35.0-45.0); ABG PH 7.405 (7.350-7.450); ABG PO2 173.9 mmHg (75.0-100.0); AaDO2 514.3 mmHg; COHb 0.3 % (0.5-1.5); MetHb 1.2 % (0.0-1.5); O2Hb 96.6 % (94.0-97.0); SITE, ABG A-Line
[2018-10-07] MEDS ORDERED: EPINEPHRINE (1:1000) 1 MG/ML AMPUL ONE (01:13)
[2018-10-07] MEDS: EPINEPHRINE (1:1000) 1 MG in IV D5W 250 ML IV PRN ×2 (01:31→08:12)
[2018-10-07 01:56] LABS: BASOPHILS % (AUTO) 0.3 % (0.0-2.0); EOSINOPHILS % (AUTO) 0.7 % (0.0-6.0); HEMATOCRIT 25 % (33-45); HEMOGLOBIN 8.3 g/dL (11.5-14.8); LYMPHOCYTES # (AUTO) 1.9 /CMM (0.8-4.8); LYMPHOCYTES % (AUTO) 14.4 % (20.0-44.0); MEAN CORPUSCULAR HGB CONC 33 g/dl (31.0-36.0); MEAN CORPUSCULAR VOLUME 92 fL (82-100); MONOCYTES # (AUTO) 0.9 /CMM (0.1-1.30); NEUTROPHILS # (AUTO) 10.4 /CMM (1.8-8.9); NEUTROPHILS % (AUTO) 77.6 % (43.0-81.0); PLATELET COUNT (AUTO) 56 /CMM (150-450); RED BLOOD CELL COUNT(AUTO) 2.75 MIL/uL (4.0-5.2); WHITE BLOOD COUNT (AUTO) 13.5 K/uL (4.3-11.0)
[2018-10-07 02:02] LABS: CALCIUM, SERUM 6.6 mg/dL (8.5-10.1); CREATININE 1.8 mg/dL (0.6-1.3); POTASSIUM 3.9 mmol/L (3.5-5.1)
[2018-10-07 02:14] LABS: ALBUMIN 3.1 g/dL (3.4-5.0); BILIRUBIN,TOTAL 1.2 mg/dL (0.2-1.0); MAGNESIUM 1.7 mg/dL (1.8-2.4); PHOSPHORUS 3.9 mg/dL (2.5-4.9); TOTAL PROTEIN, SERUM 4.3 g/dL (6.4-8.2)
--- NOTE | 2018-10-07 02:52 | NUR ---
RN NOTES DR PINA NOTIFIED ABOUT THE CURRENT STAT LAB RESULTS INCLUDING CRITICAL AMMONIA 1009. NO NEW ORDERS OF THE MOMENT.
[2018-10-07] MEDS: ALBUMIN 25% 25 GM in PREMIX 1 EA IV SCH ×3 (02:55→15:41)
--- NOTE | 2018-10-07 03:05 | NUR ---
SKILLS AUDITOR NON ADMIT STK MEDS
[2018-10-07 03:21] LABS: BAND % (MANUAL) 19 % (0.0-5.0); LYMPHOCYTES % (MANUAL) 21 % (16-48); MONOCYTES % (MANUAL) 5 % (0-11.0); NEUTROPHILS % (MANUAL) 53 (42-76)
[2018-10-07 03:22] LABS: EOSINOPHILS % (MANUAL) 2 % (0-4)
[2018-10-07] MEDS: PHENYLEPHRINE 80 MG in IV D5W 250 ML IV PRN ×5 (03:55→20:47)
--- NOTE | 2018-10-07 04:00 | NUR ---
RN NOTES PATIENT REMAINS TO BE UNSTABLE, STILL UNABLE TO REPOSITION
[2018-10-07] MEDS: SODIUM CHLORIDE IRRIG IR SCH ×3 (04:13→21:23)
[2018-10-07] MEDS: HYDROCORTISONE SOD SUCCINATE 100 MG/2 ML VIAL IV SCH ×3 (04:13→20:40)
[2018-10-07] MEDS: LACTULOSE IR SCH ×3 (04:13→21:23)
[2018-10-07] MEDS: PHENYTOIN SODIUM IV 50 MG/ML VIAL IV SCH (04:13)
[2018-10-07] MEDS ORDERED: NOREPINEPHRINE 4 MG/4 ML AMPUL IV ONE (04:13)
[2018-10-07] MEDS ORDERED: CELLULOSE,OXIDIZED 1 EA PACK MC ONE (04:30)
[2018-10-07 04:52] LABS: BASOPHILS % (AUTO) 0.1 % (0.0-2.0); EOSINOPHILS % (AUTO) 0.2 % (0.0-6.0); MEAN CORPUSCULAR HGB CONC 33 g/dl (31.0-36.0); MEAN CORPUSCULAR VOLUME 95 fL (82-100); MONOCYTES # (AUTO) 1.3 /CMM (0.1-1.30); MONOCYTES % (AUTO) 8.8 % (2.0-12.0); NEUTROPHILS # (AUTO) 10.9 /CMM (1.8-8.9); NEUTROPHILS % (AUTO) 76.9 % (43.0-81.0); RED BLOOD CELL COUNT(AUTO) 2.03 MIL/uL (4.0-5.2); WHITE BLOOD COUNT (AUTO) 14.2 K/uL (4.3-11.0)
[2018-10-07] MEDS: NOREPINEPHRINE 16 MG in IV D5W 500 ML IV PRN ×2 (04:52→15:26)
[2018-10-07 05:05] LABS: CALCIUM, SERUM 6.3 mg/dL (8.5-10.1); CREATININE 2.1 mg/dL (0.6-1.3)
[2018-10-07 05:37] LABS: HEMATOCRIT 19 % (33-45); HEMOGLOBIN 6.3 g/dL (11.5-14.8); PLATELET COUNT (AUTO) 47 /CMM (150-450)
[2018-10-07 05:40] LABS: BAND % (MANUAL) 12 % (0.0-5.0); NEUTROPHILS % (MANUAL) 59 (42-76)
[2018-10-07 05:41] LABS: LYMPHOCYTES % (MANUAL) 19 % (16-48); MONOCYTES % (MANUAL) 10 % (0-11.0)
[2018-10-07] MEDS: PIPERACILLIN /TAZOBACTAM 3.375 G in IV D5W 100 ML IV SCH ×3 (05:42→22:55)
[2018-10-07] MEDS: INSULIN REGULAR, HUMAN 100 UNIT/ML 3 ML VIAL SQ PRN (05:43)
--- NOTE | 2018-10-07 06:26 | NUR ---
RN CLOSING NOTES PT REMAINS TO BE INTUBATED WITH CURRENT SETTINGS AC 36, TV 550, FIO2 100%, PEEP 0. ON MULTIPLE DRIPS: EPI DRIP 2MCG/MIN, LEVO DRIP 20MCG/MIN, KRISTINE DRIP 300MCG/MIN, SANDOSTATIN DRIP, PROTONIX DRIP, AND BICARB 150MEQ IN D5W 150MLS/HR. WILL ENDORSE PRIMITIVO TO AM RN
[2018-10-07] MEDS: PANTOPRAZOLE 80 MG in IV NS 0.9% 500 ML IV SCH ×2 (06:49→15:36)
[2018-10-07 06:57] LABS: BAND % (MANUAL) 11 % (0.0-5.0); LYMPHOCYTES % (MANUAL) 15 % (16-48); MONOCYTES % (MANUAL) 11 % (0-11.0)
[2018-10-07 06:58] LABS: METAMYELOCYTES % 4 % (0-0); NEUTROPHILS % (MANUAL) 59 (42-76)
--- NOTE | 2018-10-07 07:15 | NUR ---
ICU/RN: Pt received orally intubated. Pupils fixed and dilated, absent cough reflex. Levophed, Epinephrine and Neosynephrine infusing through TEQUILA PICC, SBP titrated to goal parameters. RIJ with sandostatin, protonix, zosyn drip ongoing. Pt hypothermic 88.6F, yadira-hugger applied. FC and rectal tube to gravity, no output. Unable to turn and reposition dt hemodynamic instability.
[2018-10-07] MEDS: RIFAXIMIN 550 MG TABLET PO SCH ×2 (07:27→17:00)
--- NOTE | 2018-10-07 09:00 | NUR ---
ICU/RN: Dr Uribe at bedside discussing poor prognosis, poc with pt's daughter and sons at bedside. Critical abn labs discussed with MD. Family extensively educated, still needs reinforcement.
--- NOTE | 2018-10-07 09:05 | NUR ---
ICU/RN: Dr Craft at bedside; updated on pt status. Critical ABGs, current vent settings reviewed. No new orders.
[2018-10-07 09:08] LABS: ABG BASE EXCESS -24.8 mmol/L; ABG OXYGEN SATURATION 97.8 % (92.0-98.5); ABG PCO2 12.5 mmHg (35.0-45.0); ABG PH 7.035 (7.350-7.450); ABG PO2 305.3 mmHg (75.0-100.0); AaDO2 395.2 mmHg; COHb 0.1 % (0.5-1.5); MetHb 1.1 % (0.0-1.5); O2Hb 96.6 % (94.0-97.0); SITE, ABG A-Line; VENT MODE, BG AC 36 550 100% +0
--- NOTE | 2018-10-07 09:15 | NUR ---
ICU/RN: Dr Garcia at bedside; discussing pt prognosis extensively with family. Pt's daughter Meme, and son at bedside, with multiple repeated questions despite explanations from several MDs regarding POC, liver function, and possible brain ; appears to be in denial and hopeful of pt recovery. Emotional and supportive care provided.
--- NOTE | 2018-10-07 10:25 | NUR ---
ICU/RN: Dr Kerns at bedside, discussed pt prognosis with pt's children at bedside. Daughter requesting evaluation for liver transplant, explained that pt is not presently a candidate for transplant due to hemodynamic instability. Family at bedside remains hopeful for pt recovery. JAYCEE Richmond RN at bedside, initiating HD and blood transfusion of 5th unit of PRBC as ordered. notified informed of critical abdominal arterial study results called in by Dr Ndiaye. No new orders. dairy equipment specialist updated.
--- NOTE | 2018-10-07 10:30 | NUR ---
ICU/RN: Wil Murillo NP notified of abdominal arterial study results suggesting main portal, R portal vein thrombosis. No new orders. HD ongoing.
[2018-10-07] MEDS ORDERED: Magnesium 1GM/D5W 100ML PREMIX 100 ML IV SCH (10:37)
--- NOTE | 2018-10-07 12:45 | NUR ---
ICU/RN: HD complete; net positive 1200ml including blood products. SBP within parameters, on max dose of Neosynephrine. Active bleeding noted from A-line site.
--- NOTE | 2018-10-07 13:00 | NUR ---
ICU/RN: MATI Jay at bedside for surgical consult; informed of bleeding from A-line. Lengthy discussion with family at bedside.
--- NOTE | 2018-10-07 13:30 | NUR ---
ICU/RN: Driss Steward at bedside; for emergent suturing of A-line site. Pressure dressing applied. Wil Murillo at bedside, notified of recent labs, flexiseal with black liquid output.
[2018-10-07 14:02] LABS: BASOPHILS % (AUTO) 0.2 % (0.0-2.0); LYMPHOCYTES # (AUTO) 1.4 /CMM (0.8-4.8); MEAN CORPUSCULAR HGB CONC 33 g/dl (31.0-36.0); MEAN CORPUSCULAR VOLUME 92 fL (82-100); MONOCYTES # (AUTO) 0.5 /CMM (0.1-1.30); MONOCYTES % (AUTO) 5.9 % (2.0-12.0); NEUTROPHILS # (AUTO) 4.7 /CMM (1.8-8.9); NEUTROPHILS % (AUTO) 52.6 % (43.0-81.0); WHITE BLOOD COUNT (AUTO) 8.9 K/uL (4.3-11.0)
[2018-10-07 14:12] LABS: EOSINOPHILS % (AUTO) 25.3 % (0.0-6.0); RED BLOOD CELL COUNT(AUTO) 1.08 MIL/uL (4.0-5.2)
[2018-10-07 14:14] LABS: HEMOGLOBIN 3.3 g/dL (11.5-14.8)
[2018-10-07 14:15] LABS: HEMATOCRIT 10 % (33-45); PLATELET COUNT (AUTO) 12 /CMM (150-450)
[2018-10-07 14:58] LABS: ALBUMIN 1.5 g/dL (3.4-5.0); BILIRUBIN,DIRECT 0.2 mg/dL (0.0-0.2); CREATININE 1.6 mg/dL (0.6-1.3); POTASSIUM 4.2 mmol/L (3.5-5.1); TOTAL PROTEIN, SERUM 2.3 g/dL (6.4-8.2)
[2018-10-07 15:08] LABS: CALCIUM, SERUM 5.7 mg/dL (8.5-10.1)
[2018-10-07 15:32] LABS: BAND % (MANUAL) 16 % (0.0-5.0); LYMPHOCYTES % (MANUAL) 30 % (16-48); MONOCYTES % (MANUAL) 10 % (0-11.0); MYELOCYTES % 2 % (0-0); NEUTROPHILS % (MANUAL) 40 (42-76); PROMYELOCYTES % 2 % (0-0)
--- NOTE | 2018-10-07 16:00 | NUR ---
ICU/RN: Hygienic care rendered. Sheets and towels saturated with blood.
--- NOTE | 2018-10-07 17:05 | NUR ---
ICU/RN: Wil Murillo NP notified of 50cc of bright red blood from nares, new orders noted and carried out.
[2018-10-07 17:12] LABS: HEMOGLOBIN 5.2 g/dL (11.5-14.8)
--- NOTE | 2018-10-07 17:40 | NUR ---
ICU/RN: Driss Steward, CHANGE OVER; Wil Murillo, CHANGE OVER at bedside. GT insertion attempted by CHANGE OVER; unable to insert. Pt noted with active bleed 375 bright red blood out. Informed plate glass installer helper of current CVP of 4 s/p 2 units of blood, 1.5L NS bolus, current H/H level. Pending lab draws prior to continuing transfusion.
[2018-10-07] MEDS ORDERED: PHENYLEPHRINE 0.5% NASAL SPRAY 15 ML BOTTLE NS ONE (18:00)
--- NOTE | 2018-10-07 19:00 | NUR ---
ICU/RN: Pt s/p rhino packing by Driss Steward; was actively bleeding throughout procedure. Family at bedside and was updated throughout. 1904 reported to Driss Steward NP; Wil Murillo NP. Awaiting orders.
[2018-10-07 19:08] LABS: ABG BASE EXCESS -24.2 mmol/L; ABG OXYGEN SATURATION 98.4 % (92.0-98.5); ABG PCO2 15.5 mmHg (35.0-45.0); ABG PH 7.033 (7.350-7.450); ABG PO2 320.3 mmHg (75.0-100.0); AaDO2 377.2 mmHg; COHb 1.5 % (0.5-1.5); SITE, ABG A-Line
--- NOTE | 2018-10-07 19:15 | NUR ---
ICU/RN RECEIVED PT ON VENT VIA ORAL ETT ON 100% FI02.PT COMATOSE.ON MULTIPLE DRIPS=KRISTINE AT 300 MCG/MLN,LEVOPHED AT 30MCG/MIN,EPI DRIP AT 1MCG/MIN,PROTONIX DRIP AT 50MG/HR,SANDOSTATIN AT 50MCG/MIN.A-LINE VIA RT RADIALTO OBTAIN BP UNABLE TO GET BP.
[2018-10-07] MEDS ORDERED: IV NS 0.9% 1,000 ML IV PRN (19:30)
[2018-10-07] MEDS: IV NS 0.9% 1,000 ML IV PRN ×3 (19:32→21:36)
[2018-10-07] MEDS ORDERED: SODIUM BICARBONATE SYR 50 MEQ/50 ML DISP.SYRIN IV ONE (19:39)
[2018-10-07] MEDS ORDERED: EPINEPHRINE (1:10,000) SYRINGE 1 MG/10 ML DISP.SYRIN IVP ONE (19:39)
[2018-10-07] MEDS ORDERED: DEXTROSE 50%-WATER 50 ML DISP.SYRIN IV ONE (19:39)
--- NOTE | 2018-10-07 20:00 | NUR ---
ICU/RN I UNIT PRBC HUNG VIA RAPID TRANSFUSER,PT TO RECEIVE 3UNITS PRBC.
[2018-10-07] MEDS: Sodium Acetate 150 MEQ in IV D5W 1,000 ML IV PRN (20:11)
[2018-10-07] MEDS: OCTREOTIDE 1,250 MCG in IV NS 0.9% 247.5 ML IV PRN (21:00)
[2018-10-07] MEDS ORDERED: PHYTONADIONE INJ 10 MG/1 ML AMPUL SQ ONE (21:00)
[2018-10-07] MEDS ORDERED: PHENYTOIN SODIUM IV 50 MG/ML VIAL IV SCH (21:00)
[2018-10-07 23:00] LABS: HEMOGLOBIN 4.5 g/dL (11.5-14.8)
[2018-10-08] VITALS (19 sets, daily range): BP systolic 87–130; BP diastolic 46–58
[2018-10-08] MEDS: INSULIN REGULAR, HUMAN 100 UNIT/ML 3 ML VIAL SQ PRN (00:01)
[2018-10-08] MEDS: PANTOPRAZOLE 80 MG in IV NS 0.9% 500 ML IV SCH (00:05)
[2018-10-08] MEDS: NOREPINEPHRINE 16 MG in IV D5W 500 ML IV PRN (00:53)
[2018-10-08] MEDS: Sodium Acetate 150 MEQ in IV D5W 1,000 ML IV PRN (01:26)
[2018-10-08] MEDS: PHENYLEPHRINE 80 MG in IV D5W 250 ML IV PRN (01:26)
--- NOTE | 2018-10-08 01:30 | NUR ---
ICU/RN RT PAGED PT KEEPS TRIGGERING THE VENT. RT HERE ,PT NOT GETTIG VOLUMES EXCEPT FOR 40-60 VOLUMES.RT ATTEMPTED TO CHANGED VENT BUT PT CONTINUES TO HAVE LOW VOLUMES.RT'S AT BEDSIDE AND BAGGED PT.CONTINUOUSLY.PT ON MAXIMUM VASOPRESSORS
[2018-10-08] MEDS: LORAZEPAM INJ 2 MG/ML VIAL IV PRN (01:52)
--- NOTE | 2018-10-08 02:00 | NUR ---
ICU/DATA SOLUTIONS ARCHITECT-DAUGHTER AND SON APPRISED W/ PT'S CONDITION PT CONTINUES TO DETERIORATE,MADE A DNR AFTER,AWAITING FOR PT'S .
[2018-10-08] MEDS: EPINEPHRINE (1:1000) 1 MG in IV D5W 250 ML IV PRN (02:04)
--- NOTE | 2018-10-08 02:30 | NUR ---
ICU/RN HR=30,PEA,ASYSTOLIC AT 0235.PROUNCED BY Jacques KOCH
--- NOTE | 2018-10-08 02:35 | NUR ---
ICU/RN- PRONOUNCEMENT OF : CODE STATUS"DO NOT RESUSCITATE". PT. UNRESPONSIVE TO ANY FORM OF STIMULI, PUPILS ARE FIXED AND DILATED.APNEIC. RESPIRATION ABSENT. EKG SHOWS ASYSTOLE X2 LEADS. PERIPHERAL PULSES ARE ABSENT. NO SIGNS OF LIFE. PT. PRONOUNCED AT 0235. BY.AUGUST MENDOZA.
--- NOTE | 2018-10-08 02:50 | NUR ---
ICU/RN POST MORTEM CARE RENDERED.REST OF FAMILY AT BEDSIDE AFTER.
--- NOTE | 2018-10-08 03:00 | NUR ---
ICU/RN PT RECEIVED A TOTAL OF 6 UNITS PRBC,2UNITS OF FFP,2UNITS OF CRYOPRECIPITATE PRIOR TO
--- NOTE | 2018-10-08 04:45 | NUR ---
ICU/RN PT. BROUGHT DOWN TO ABDULKADIR
--- NOTE | 2018-10-08 05:53 | NUR ---
ICU/RN [facility] CALLED TO INQUIRE REGARDING WHAT TIME THE FAMILY LEFT AND WHEN PATIENT WENT SHERRILL PANCHAL,INFO GIVEN.
== END 2018-10-08 02:35 | disposition expired | DRG 242 ==
LOC: TELE 01:15 → MED 11:43 → ICU 20:34
PROVIDERS: ADMIT Nurse Practitioner Acute Care; ATTEND Nurse Practitioner Acute Care
PROC: 5A1D70Z Performance of Urinary Filtration, Intermittent, Less than 6 Hours Per Day (ICD-10-PCS; principal; 2018-10-06)
PROC: 30233N1 Transfusion of Nonautologous Red Blood Cells into Peripheral Vein, Percutaneous Approach (ICD-10-PCS; principal; 2018-10-06)
PROC: 02HV33Z Insertion of Infusion Device into Superior Vena Cava, Percutaneous Approach (ICD-10-PCS; principal; 2018-10-06)
PROC: 5A12012 Performance of Cardiac Output, Single, Manual (ICD-10-PCS; principal; 2018-10-06)
PROC: 5A1945Z Respiratory Ventilation, 24-96 Consecutive Hours (ICD-10-PCS; principal; 2018-10-06)
PROC: 06L38CZ Occlusion of Esophageal Vein with Extraluminal Device, Via Natural or Artificial Opening Endoscopic (ICD-10-PCS; principal; 2018-10-06)
PROC: 04HL33Z Insertion of Infusion Device into Left Femoral Artery, Percutaneous Approach (ICD-10-PCS; principal; 2018-10-06)
PROC: 06HY33Z Insertion of Infusion Device into Lower Vein, Percutaneous Approach (ICD-10-PCS; principal; 2018-10-06)
PROC: 0BH18EZ Insertion of Endotracheal Airway into Trachea, Via Natural or Artificial Opening Endoscopic (ICD-10-PCS; principal; 2018-10-06)
PROC: 30233K1 Transfusion of Nonautologous Frozen Plasma into Peripheral Vein, Percutaneous Approach (ICD-10-PCS; principal; 2018-10-06)
PROC: B548ZZA Ultrasonography of Superior Vena Cava, Guidance (ICD-10-PCS; principal; 2018-10-06)
PROC: 30233R1 Transfusion of Nonautologous Platelets into Peripheral Vein, Percutaneous Approach (ICD-10-PCS; 2018-10-07)
PROC: 5A1D70Z Performance of Urinary Filtration, Intermittent, Less than 6 Hours Per Day (ICD-10-PCS; 2018-10-07)
PROC: 30233M1 Transfusion of Nonautologous Plasma Cryoprecipitate into Peripheral Vein, Percutaneous Approach (ICD-10-PCS; 2018-10-08)
DX: I85.01 Esophageal varices with bleeding (principal); I21.A1 Myocardial infarction type 2; I46.9 Cardiac arrest, cause unspecified; D65 Disseminated intravascular coagulation [defibrination syndrome]; E43 Unspecified severe protein-calorie malnutrition; K76.6 Portal hypertension; I81 Portal vein thrombosis; J69.0 Pneumonitis due to inhalation of food and vomit; E83.42 Hypomagnesemia; D62 Acute posthemorrhagic anemia; J96.90 Respiratory failure, unspecified, unspecified whether with hypoxia or hypercapnia; R57.8 Other shock; K72.90 Hepatic failure, unspecified without coma; I48.91 Unspecified atrial fibrillation; N17.9 Acute kidney failure, unspecified; K74.60 Unspecified cirrhosis of liver; R56.9 Unspecified convulsions; I10 Essential (primary) hypertension; K21.9 Gastro-esophageal reflux disease without esophagitis; E11.9 Type 2 diabetes mellitus without complications; E86.0 Dehydration; R74.0 Nonspecific elevation of levels of transaminase and lactic acid dehydrogenase [LDH]; Z68.32 Body mass index [BMI] 32.0-32.9, adult; K81.9 Cholecystitis, unspecified; R55 Syncope and collapse; R00.0 Tachycardia, unspecified; E87.0 Hyperosmolality and hypernatremia; G43.909 Migraine, unspecified, not intractable, without status migrainosus; E86.9 Volume depletion, unspecified; K72.00 Acute and subacute hepatic failure without coma; E88.09 Other disorders of plasma-protein metabolism, not elsewhere classified; R16.1 Splenomegaly, not elsewhere classified; E87.2 Acidosis; K31.89 Other diseases of stomach and duodenum
CPT/HCPCS: 31720; 36415; 36569; 36600; 70450-TC; 70460-TC; 71045-TC; 76700-TC; 80048-TC; 80053-TC; 80061-TC; 80076-TC; 80185-TC; 82140-TC; 82803-TC; 82962-TC; 83605-TC; 83690-TC; 83735-TC; 84100-TC; 84443-TC; 84484-TC; 85025-TC; 85027-TC; 85385-TC; 85610-TC; 85730-TC; 86850-TC; 86921-TC; 87081-TC; 90935-TC; 93979-TC; 94002-TC; 94003-TC; 94799-TC; 95819-TC; A4216; A4217; A6402; A6403; C1750; C1751; C1894; C9113; G0378; J0171; J0330; J1165; J1170; J1720; J1815; J2060; J2354; J2370; J2405; J2543; J3430; J3475; J3490; J7030; J7040; J7050; J7060; J7070; P9012; P9016-BL; P9017-BL; P9034-BL; P9047; Q9967